=== PATIENT | female | born 1950 | race Hispanic/Latino ===

== ENCOUNTER 2022-05-25 06:53 | Day surgery (SDC) | payer MEDICARE ==
[2022-05-21 13:45] LABS: BASOPHILS % (AUTO) 0.3 % (0.0-5.0); EOSINOPHILS % (AUTO) 1.1 % (0.0-8.0); HEMATOCRIT 35.9 % (36-48); LYMPHOCYTES % (AUTO) 22.8 % (21.0-51.0); MEAN CORPUSCULAR HEMOGLOBIN 27.8 pg (27.0-33.0); MEAN CORPUSCULAR VOLUME 86.7 fL (79-99); MONOCYTES % (AUTO) 6.5 % (3.0-13.0); NEUTROPHILS % (AUTO) 68.8 % (40.0-77.0); PLATELET COUNT (AUTO) 234 K/uL (130-400); RED BLOOD CELL COUNT(AUTO) 4.14 MIL/uL (4.00-5.50); RED CELL DISTRIBUTION WIDTH 13.6 % (11.0-15.5); WHITE BLOOD COUNT (AUTO) 10.5 K/uL (4.8-10.8)
[2022-05-21 13:54] LABS: CREATININE 1.7 mg/dL (0.5-1.5); POTASSIUM 4.5 mmol/L (3.5-5.1)
[2022-05-23 15:02] VITALS: BP 180/74
[2022-05-25] VITALS (23 sets, daily range): BP systolic 147–196; BP diastolic 34–80
[~2022-05-25 06:53] MED LIST: 0.9% NACL 500ML IV.SOLN 500 ML IV SCH; ATOR10 PO; CEFAZOLIN SODIUM 1 GM VIAL IVP SCH; INSU100V37 SQ; LEVO50CA4 PO; LISI1TAB49 PO; NAPR-1023 PO; OMEG-148 PO
[2022-05-25] MEDS ORDERED: 0.9%NACL 1000ML 1,000 ML IV ONE (07:25)
[2022-05-25] MEDS ORDERED: BUPIVACAINE/PF 0.5% 10ML VIAL ONE (07:38)
[2022-05-25] MEDS ORDERED: PROPOFOL 10 MG/ML 20ML VIAL IV ONE (07:48)
[2022-05-25] MEDS ORDERED: GLYCOPYRROLATE 1 MG/5 ML SYRINGE ONE (07:48)
[2022-05-25] MEDS ORDERED: ROCURONIUM 10MG/1ML SYR 10 MG/ML ML ONE ×2 (07:49→08:48)
[2022-05-25] MEDS ORDERED: FENTANYL CITRATE PF 50 MCG/1 ML 2ML VIAL ONE (07:49)
[2022-05-25] MEDS ORDERED: ONDANSETRON 4MG INJ ONE ×3 (07:49→11:40)
[2022-05-25] MEDS ORDERED: NEOSTIGMINE 5MG/5ML SYR IV ONE (07:49)
[2022-05-25] MEDS ORDERED: FAMOTIDINE 20MG VIAL IV ONE (07:53)
[2022-05-25] MEDS ORDERED: HYDROMORPHONE 1 MG INJ ONE (07:53)
[2022-05-25] MEDS ORDERED: KETOROLAC 30MG VIAL (30MG/ML) ONE (07:55)
[2022-05-25] MEDS ORDERED: CEFAZOLIN SODIUM 2 GM VIAL IV ONE (08:20)
== END 2022-05-25 14:40 | disposition home or self-care (01) ==
LOC: DAH 06:53
PROVIDERS: ATTEND Surgery
DX: K43.2 Incisional hernia without obstruction or gangrene (principal); I10 Essential (primary) hypertension; E78.5 Hyperlipidemia, unspecified; E66.01 Morbid (severe) obesity due to excess calories; Z98.891 History of uterine scar from previous surgery; Z68.34 Body mass index [BMI] 34.0-34.9, adult; Z79.899 Other long term (current) drug therapy; Z98.890 Other specified postprocedural states; Z90.49 Acquired absence of other specified parts of digestive tract; Z90.710 Acquired absence of both cervix and uterus; Z90.13 Acquired absence of bilateral breasts and nipples
CPT/HCPCS: 80048; 85025; 87426; 36415; 93005 ×2; 49654; 82948 ×2; J7030 ×2; A4344; A4215 ×2; J0690 ×2; J3490 ×3; J3010; J1170; J2710; J2704; J2405 ×3; J1885; G0168; A4649; C1781; A4930; A4223; A4222; A4221; A4663